=== PATIENT | male | born 1950 | race Caucasian/White ===

== ENCOUNTER → 2017-07-07 | Outpatient (CLI) | payer OTHER ==
[~2017-07-07] MED LIST: BECL0.3A INH; CHOL1000 PO; FLM4 PO; PRVHFAIN INH
--- NOTE | 2017-07-07 13:50 | DIAGNOSTIC IMAGING REPORT ---
SOFT TISS HEAD/NECK-THYROID HISTORY: Adenopathy LYMPHADENOPATHY, 1.7 CM LT NECK MASS COMPARISON: Ultrasound 2018 G FINDINGS: A preprocedural survey ultrasound of the left cervical neck was performed. This shows the 1.7 x 1.0 cm node in the prior study diminished to a size measurement of 1.0 x 0.5 cm. This Is approximately a 50-60% improvement in volume. Remains generally benign overall morphology with a fatty hilum. Given this improvement, as well as the benign morphology, biopsy was deferred as it is an improving situation. IMPRESSION: 1. Considerable interval decrease in size of the subcutaneous nodule previous described in the left posterior neck. 2. Interval maximum dimensions are 1.0 x 0.5 cm, with benign morphology characteristics. 3. Given this improvement, biopsy was deferred. 4. If this resolves completely no additional studies would be necessary. If the patient has recurrent symptoms, a repeat ultrasound with potential biopsy to follow-would be recommended. The above report was generated using voice recognition software. It may contain grammatical, syntax or spelling errors. Electronically signed by: Syed Clark M.D. 07/07/2017 1:49 PM Dictated Date/Time: 07/07/2017 1:45 PM
== END | disposition home or self-care (01) ==
LOC: C.ULTR 12:48
PROVIDERS: ATTEND Physician Assistant
DX: R59.1 Generalized enlarged lymph nodes (principal)

== ENCOUNTER 2021-01-19 12:16 | Inpatient (IN) ==
--- NOTE | 2021-01-19 13:34 | Emergency Department Note ---
History of Present Illness General Chief complaint: Shortness of Breath/Dyspnea Stated complaint: COVID +,SOB Time Seen by Provider: 01/19/21 12:39 Source: patient Mode of arrival: ambulatory Limitations: no limitations History of Present Illness Provider complaint: Shortness of breath, hypoxia, Covid positive Onset (ago): day(s) 3 Maximum Pain Intensity: 0 Relieved By: + none Exacerbated By: + movement Associated symptoms: + cough, + fever/chills, + loss of appetite, + malaise and + shortness of breath; no chest pain, no headaches or no nausea/vomiting Treatments prior to arrival: other This is a 70-year-old male presents the emergency department due to concern for increased shortness of breath and hypoxia noted at home. Patient states he first began having symptoms of coronavirus 9 days ago. He was tested and found to be positive. He states initially his symptoms were mild with rhinorrhea, fatigue, myalgias, nasal congestion, mild sore throat. He states as these progressed he eventually ended up coming to the emergency department due to concern for his worsening shortness of breath. He states he has been spot checking his oxygen level at home with a pulse oximeter. He states he was seen and evaluated here on Thursday, his oxygen level was fine at that time, and he was given monoclonal antibodies. He states he was also discharged on steroids which she has been taking per prescription. Patient states he is continue to spot check his pulse ox and it has dropped as low as 81% at home. He states over the last 48 to 72 hours he has felt increasingly short of breath. Patient states he does have a productive cough with mostly clear sputum. He denies any hemoptysis. He denies leg swelling, rash, vomiting or diarrhea. He states he has not had a normal appetite and still feels fatigued but is most concerned about the shortness of breath or cough. He states his is also ill and was also coronavirus positive. He states he does have a history of exercise-induced asthma. Denies any history of tobacco abuse. Pt seen during a time of high acuity and national emergency pandemic while wearing PPE. 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) Surgical History (Updated 01/19/21 @ 16:06 by Amaury Wen MD) Knee joint replacement status Social History Smoking Status: Never smoker Second Hand Exposure: No; Do You Dip or Chew Tobacco: No; Tobacco Cessation Education Requested by Patient: No Hx Alcohol Use: Yes Alcohol type: wine Hx Substance Use: No Preferred Language: Frisian Communication Ability: Effective [employer] Supervisor Required: No Beliefs That Will Affect Care: None Current Living Situation: Spouse Other Information That Helps Us Care for You: No Feels Safe at Home: Yes Safety Concerns: Feels Safe At This Time Assistive Devices: Oxygen - Continuous Review of Systems A total of 10 systems reviewed and were otherwise negative All systems reviewed & are unremarkable except as noted in HPI & below Physical Exam Vital Signs Vital Signs - 24 hr 01/19/21 12:22 01/19/21 12:47 01/19/21 13:47 Temperature 36.8 C Temperature Source Temporal Artery Scan Pulse Rate 75 60 Pulse Rate from SpO2 Sensor 59 L Respiratory Rate 18 20 Blood Pressure 103/63 Blood Pressure Mean 76 Pulse Oximetry 86 L 95 Oxygen Delivery Method Room Air Nasal Cannula Oxygen Flow Rate 5 Sepsis Recent Fever Within 48 Hours No Sepsis New/Unexplained Change in Mental Status No Sepsis Action Taken by Nursing No Action Required 01/19/21 13:55 01/19/21 15:30 01/19/21 16:07 Temperature 36.8 C Temperature Source Oral Pulse Rate 86 Pulse Rate from SpO2 Sensor 86 Respiratory Rate 23 Blood Pressure 136/81 Blood Pressure Mean 99 Pulse Oximetry 100 Oxygen Delivery Method Nasal Cannula Oxygen Flow Rate 5 Sepsis Recent Fever Within 48 Hours Sepsis New/Unexplained Change in Mental Status Sepsis Action Taken by Nursing 01/19/21 16:38 Temperature 36.8 C Temperature Source Oral Pulse Rate 84 Pulse Rate from SpO2 Sensor Respiratory Rate 18 Blood Pressure 134/86 Blood Pressure Mean Pulse Oximetry 100 Oxygen Delivery Method Nasal Cannula Oxygen Flow Rate 5 Sepsis Recent Fever Within 48 Hours Sepsis New/Unexplained Change in Mental Status Sepsis Action Taken by Nursing GENERAL: alert, ill appearing, well nourished, no distress, non-toxic EYE EXAM: normal conjunctiva, PERRL and EOM's grossly intact OROPHARYNX: no exudate, no erythema, lips, buccal mucosa, and tongue normal and mucous membranes are moist NECK: supple, no nuchal rigidity, no adenopathy, non-tender LUNGS: Clear to auscultation. Normal chest wall mechanics, no wheezes, scattered rhonchi and rales HEART: no murmurs, S1 normal and S2 normal ABDOMEN: abdomen soft, non-tender, normo-active bowel sounds, no masses, no rebound or guarding. BACK: Back is symmetrical on inspection and there is no deformity, no midline tenderness, no CVA tenderness. SKIN: no rashes and no bruising UPPER EXTREMITIES: upper extremities are grossly normal. FROM, nml pulses b/l. LOWER EXTREMITIES: No pitting edema. FROM, nml pulses b/l. NEURO EXAM: Normal sensorium, cranial nerves II-XII grossly intact, normal speech, no gross weakness of arms, no gross weakness of legs. Gross sensation intact. Course Administered Medications Enoxaparin Sodium (Enoxaparin Inj 40 Mg/0.4 Ml Syr) 40 mg SQ Q12H CARLYLE Stop: 02/18/21 20:59 Last Admin: 01/20/21 08:12 Dose: 40 mg Documented by: [id number] Admin: 01/19/21 21:11 Dose: 40 mg Documented by: [id number] Fluticasone Furoate (Fluticasone Furoate 200mcg 14 Puffs/Inhaler) 1 puffs INH DAILY CARLYLE Stop: 02/19/21 08:59 Last Admin: 01/20/21 08:13 Dose: 1 puffs Documented by: [id number] Dexamethasone 6 mg/ Syringe 1.5 mls @ 1 mls/min IV DAILY CARLYLE Stop: 01/30/21 08:59 Last Admin: 01/20/21 08:12 Dose: 1 mls/min Documented by: [id number] Tamsulosin HCl (Tamsulosin Hcl 0.4 Mg Cap) 0.4 mg PO DAILY CARLYLE Stop: 02/19/21 08:59 Last Admin: 01/20/21 08:13 Dose: 0.4 mg Documented by: [id number] Discontinued Medications Furosemide (Furosemide Inj 20 Mg/2 Ml Vial) 20 mg IV ONE ONE Stop: 01/20/21 07:20 Last Admin: 01/20/21 08:12 Dose: 20 mg Documented by: [id number] Sodium Chloride (Nss 1000ml) 1,000 mls @ 125 mls/hr IV .Q8H CARLYLE Stop: 02/18/21 13:44 Last Infusion: 01/19/21 17:29 Dose: 0 mls/hr Documented by: [id number] Admin: 01/19/21 14:13 Dose: 125 mls/hr Documented by: [id number] Medical Decision Making Differential Diagnosis Differential diagnoses includes but is not limited to pneumonia, bronchitis, COPD/Asthma exacerbation, pneumothorax, pulmonary embolism, congestive heart failure, acute coronary syndrome Medical Records Attestation: I reviewed the patient's medical records. Home Medications Current Medication List: was personally reviewed by me Laboratory Data Attestation: I reviewed the patient's lab results. Result diagrams: 01/19/21 13:48 01/20/21 08:22 Lab Results 01/19/21 01/19/21 01/19/21 Range/Units 13:48 13:48 13:48 WBC 16.74 H (4.8-10.8) K/uL RBC 4.79 (4.7-6.1) M/uL Hgb 14.2 (14.0-18.0) g/dL Hct 41.2 L (42-52) % MCV 86.0 (80-100) fL MCH 29.6 (25-34) pg MCHC 34.5 (32-36) g/dL RDW Std Deviation 43.2 (36.4-46.3) fL RDW Coeff of Kathia 13.8 (11.5-14.5) % Plt Count 322 (130-400) K/uL MPV 10.0 (7.4-10.4) fL Immature Gran % (Auto) 1.3 % Neut % (Auto) 85.0 % Lymph % (Auto) 6.8 % [place] % (Auto) 6.8 % Eos % (Auto) 0.0 % Baso % (Auto) 0.1 % Neut # (Auto) 14.24 H (1.4-6.5) K/uL Lymph # (Auto) 1.13 L (1.2-3.4) K/uL [place] # (Auto) 1.13 H (0.11-0.59) K/uL Eos # (Auto) 0.00 (0-0.5) K/uL Baso # (Auto) 0.02 (0-0.2) K/uL Immature Gran # (Auto) 0.22 H (0.00-0.02) K/uL Sodium 139 (136-145) mmol/L Potassium 3.9 (3.5-5.1) mmol/L Chloride 108 H (98-107) mmol/L Carbon Dioxide 26 (21-32) mmol/L Anion Gap 5.0 (3-11) BUN 17 (7-18) mg/dl Creatinine 0.76 (0.6-1.4) mg/dl Est Cr Clr Drug Dosing 93.4 ml/min Est GFR ( Amer) 107.1 ml/min Est GFR (Non-Af Amer) 92.4 ml/min BUN/Creatinine Ratio 22.9 H (10-20) Glucose 109 H (70-99) mg/dl Calcium 8.3 L (8.5-10.1) mg/dl Magnesium 2.4 (1.8-2.4) mg/dl Total Bilirubin 0.6 (0.2-1) mg/dl AST 34 (15-37) U/L ALT 35 (12-78) U/L Alkaline Phosphatase 61 (45-117) U/L Troponin I < 0.015 (0-0.045) ng/ml NT-Pro-B Natriuret Pep 2252 H (0-900) pg/ml Total Protein 6.3 L (6.4-8.2) gm/dl Albumin 2.6 L (3.4-5.0) gm/dl Globulin 3.7 (2.5-4.0) gm/dl Albumin/Globulin Ratio 0.7 L (0.9-2) COVID-19 Eval Order Covid19 at [facility] SARS-CoV-2 (PCR) (Negative) 01/19/21 Range/Units 13:48 WBC (4.8-10.8) K/uL RBC (4.7-6.1) M/uL Hgb (14.0-18.0) g/dL Hct (42-52) % MCV (80-100) fL MCH (25-34) pg MCHC (32-36) g/dL RDW Std Deviation (36.4-46.3) fL RDW Coeff of Kathia (11.5-14.5) % Plt Count (130-400) K/uL MPV (7.4-10.4) fL Immature Gran % (Auto) % Neut % (Auto) % Lymph % (Auto) % [place] % (Auto) % Eos % (Auto) % Baso % (Auto) % Neut # (Auto) (1.4-6.5) K/uL Lymph # (Auto) (1.2-3.4) K/uL [place] # (Auto) (0.11-0.59) K/uL Eos # (Auto) (0-0.5) K/uL Baso # (Auto) (0-0.2) K/uL Immature Gran # (Auto) (0.00-0.02) K/uL Sodium (136-145) mmol/L Potassium (3.5-5.1) mmol/L Chloride (98-107) mmol/L Carbon Dioxide (21-32) mmol/L Anion Gap (3-11) BUN (7-18) mg/dl Creatinine (0.6-1.4) mg/dl Est Cr Clr Drug Dosing ml/min Est GFR ( Amer) ml/min Est GFR (Non-Af Amer) ml/min BUN/Creatinine Ratio (10-20) Glucose (70-99) mg/dl Calcium (8.5-10.1) mg/dl Magnesium (1.8-2.4) mg/dl Total Bilirubin (0.2-1) mg/dl AST (15-37) U/L ALT (12-78) U/L Alkaline Phosphatase (45-117) U/L Troponin I (0-0.045) ng/ml NT-Pro-B Natriuret Pep (0-900) pg/ml Total Protein (6.4-8.2) gm/dl Albumin (3.4-5.0) gm/dl Globulin (2.5-4.0) gm/dl Albumin/Globulin Ratio (0.9-2) COVID-19 Eval Order SARS-CoV-2 (PCR) POSITIVE A* (Negative) Imaging Data Radiologist's Impression: Chest X-Ray 01/19/21 13:31 XR chest 1V portable HISTORY: Shortness of breath. Hypoxia. COMPARISON: Chest 01/16/2021. FINDINGS: No pneumothorax. No pleural effusions. The cardiac silhouette remains top normal in size. Patchy multifocal airspace opacities seen throughout the lungs have site progressed. This likely represents a viral pneumonia. IMPRESSION: Slight progression of the multifocal airspace opacities likely representing a viral pneumonia. ACT 112: Negative or not required by law. Electronically signed by: Da Beard M.D. 01/19/2021 2:52 PM ECG Data Attestation: I personally reviewed and interpreted this ECG as follows: Indication: + SOB/dyspnea Rate (beats per minute): 48 Rhythm: + sinus bradycardia ECG Intervals/blocks: + Normal QRS and + Normal QT ECG [place]: + Normal ECG ST segments: + Normal ST segments MDM Narrative This is a 70-year-old male presents the emergency department with concern for increased shortness of breath in the setting of known coronavirus. Patient was in the 80s here on room air and felt markedly improved with additional supplemental oxygen. Labs drawn and sent which were reassuring, chest x-ray consistent with coronavirus infection. Patient started on dexamethasone previously. Discussed all results with patient at bedside and need for additional inpatient evaluation. He verbalized understanding was in agreement with plan. Case discussed with hospitalist. An order was placed for continuous cardiac monitoring. The monitor shows a rate of __59_ with _sinus bradycardia__ rhythm. Impression & Plan Dyspnea, Hypoxia, COVID-19 Discharge Plan Visit Data Chief Complaint: Shortness of Breath/Dyspnea Stated Complaint: COVID +,SOB ED Provider: Yolie Montoya Discharge Problem: Dyspnea, Hypoxia, COVID-19 Patient Disposition: Admitted As Inpatient Condition: Fair Discharge Instructions Interventions: ED Discharge Assessment Last Done: 01/19/21 16:38 Discharge Problem: Dyspnea Qualifiers: Dyspnea type: shortness of breath Qualified Code(s): R06.02 - Shortness of breath
[2021-01-19] MEDS ORDERED: SODIUM CHLORIDE 0.9% 1000ML 1,000 ML IV SCH (13:45)
[2021-01-19 14:13] LABS: Basophils # (auto) 0.02 K/uL (0-0.2); Basophils % (auto) 0.1 %; Hematocrit (blood only) 41.2 % (42-52); Hemoglobin 14.2 g/dL (14.0-18.0); Immature Granulocytes # (auto) 0.22 K/uL (0.00-0.02); Immature Granulocytes % (auto) 1.3 %; Lymphocytes # (auto) 1.13 K/uL (1.2-3.4); Lymphocytes % (auto) 6.8 %; Mean Corpuscular Hemoglobin 29.6 pg (25-34); Mean Corpuscular Hgb Conc 34.5 g/dL (32-36); Monocytes # (auto) 1.13 K/uL (0.11-0.59); Monocytes % (auto) 6.8 %; Neutrophils # (auto) 14.24 K/uL (1.4-6.5); Platelet Count 322 K/uL (130-400); RDW Coefficient of Variation 13.8 % (11.5-14.5); RDW Standard Deviation 43.2 fL (36.4-46.3); Red Blood Count 4.79 M/uL (4.7-6.1); White Blood Count 16.74 K/uL (4.8-10.8)
[2021-01-19 14:31] LABS: Alanine Aminotransferase 35 U/L (12-78); Albumin Level 2.6 gm/dl (3.4-5.0); Aspartate Aminotransferase 34 U/L (15-37); BUN Creatinine Ratio 22.9 (10-20); Blood Urea Nitrogen 17 mg/dl (7-18); Calcium 8.3 mg/dl (8.5-10.1); Carbon Dioxide 26 mmol/L (21-32); Chloride 108 mmol/L (98-107); Creatinine Clr Calc Pharmacy 93.4 ml/min; Est GFR (African American) 107.1 ml/min; Est GFR (Non-African American) 92.4 ml/min; Glucose 109 mg/dl (70-99); Magnesium 2.4 mg/dl (1.8-2.4); Potassium 3.9 mmol/L (3.5-5.1); Sodium 139 mmol/L (136-145)
[2021-01-19 14:36] LABS: Albumin Globulin Ratio 0.7 (0.9-2); Alkaline Phosphatase 61 U/L (45-117); Bilirubin,Total 0.6 mg/dl (0.2-1); Globulin 3.7 gm/dl (2.5-4.0); NT Pro B Type Natriuretic Pept 2252 pg/ml (0-900); Total Protein 6.3 gm/dl (6.4-8.2); Troponin I < 0.015 ng/ml (0-0.045)
--- NOTE | 2021-01-19 14:53 | XRay Report ---
XR chest 1V portable HISTORY: Shortness of breath. Hypoxia. COMPARISON: Chest 01/16/2021. FINDINGS: No pneumothorax. No pleural effusions. The cardiac silhouette remains top normal in size. P atchy multifocal airspace opacities seen throughout the lungs have site progressed. This likely repre sents a viral pneumonia. IMPRESSION: Slight progression of the multifocal airspace opacities likely representing a viral pneumonia. ACT 112: Negative or not required by law. Electronically signed by: Da Beard M.D. 01/19/2021 2:52 PM
--- NOTE | 2021-01-19 15:53 | History & Physical Report ---
Date of Service January 19, 2021 Assessment & Plan (1) Pneumonia due to 2019 novel coronavirus: Plan: Celestino is a 70-year-old male with a past medical history of asthma who presents on day approximately 1012 of Covid with worsening hypoxia. Acute hypoxic respiratory failure 2/2 COVID-19 pneumonia Patient in low 80s on arrival to ER, sat approximately 90% on 5 L nasal cannula Received Monocal antibodies last week CXR:Slight progression of the multifocal airspace opacities likely representing a viral pneumonia. Leukocytosis to 16.74, patient on steroids? Steroid effect. No signs of superimposed bacterial pneumonia proBNP 2252, patient denies history of cardiac disease Troponin negative Covid positive EKG sinus bradycardia on admission, regular rate at time of bedside assessment Continue dexamethasone 6 mg IV daily Titrate oxygen to SPO2 greater than 90% Continue Pulmicort 2 puffs twice daily/formulary equivalent DuoNebs as needed Incentive spirometry Defer additional fluids. Patient appears hydrated and prefer dry status.? El evated BNP as patient denies cardiac history, echo pending Does not meet criteria for tocilizumab at this time, remdesivir not indicated due to duration of illness DVT prophylaxis: Lovenox DVT prophylaxis Diet: Regular Disposition: Medical surgical with telemetry CODE STATUS: Full code. Discussed with patient. Reports he has a living well with his , was to be full code at this time. (2) Asthma: Plan: As above (3) BPH (benign prostatic hyperplasia): Plan: Continue tamsulosin. No history of prostate cancer, no family history of prostate cancer History of Present Illness Chief Complaint: Shortness of breath, low O2 Primary Care Provider: Kinza Miramontes DO Celestino reports symptoms and fatigue started ~10 days ago. Tested positive for COVID Wed (resulted Thursday). [place] 'iffy' some achiness and congestion of the weekend. He has a home pulseox which was dropping, an dhe was concerned so came in the ER 4 days ago. He presented with his whose lungs looked OK, but Celestino reported his XR showed more PNA and was given a monoclonal infusion here by Dr. Eller. Recieved that evening and started decadron 6mg daily. This morning he noticed his oxygen was down to 81% and he was very short of short. No chest pain or pressure Still peeing normally No nausea, vomiting, diarrhea, or constipation Hungry Had J&J vaccination Medical History: Reviewed. 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 BPH on tamsulosin. No hx prostate cancer. Medications: Reviewed Surgical History: Reviewed FHX: Noncontributory Allergies: Reviewed. NKDA Social History: No tobacco product use. Rare alcohol. No recreational drug use. Code Status:Full Code. 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 NAD. Cooperative. HEENT: Atraumatic, normocephalic. Visual acuity grossly intact. Hearing grossly intact. Pupils equal and reactive to light. Pulm: Scattered bibasilar crackles, diffuse end expiratory wheezes. Symmetrical chest rise. No increase work of breathing. No respiratory distress. Cardiac: RRR, -mrg. Radial pulses intact and symmetrical. Abdominal: Nontender, nondistended, soft. BS present. Extremities: Skin warm and dry, plant operations coordinator strength, ankle plantar flexion/dorsiflexion 5/5 and symmetrical. Radial pulses and PT pulse intact. Results & Data Results & Data ([facility]) Vital Signs (Past 12 Hours) Vital Signs Temp Pulse Resp BP Pulse Ox 01/19/21 12:22 36.8 C 75 18 103/63 86 L PG Care Time/CCT Total # of Minutes Spent Total Time Spent with Patient: Total time spent is greater than 50% in coordination of care (as documented) at patient's floor/unit and/or counseling patient: Coding Level of Care Code 31994 Initial Inpt Care Lvl 3 Diagnoses Pneumonia due to 2019 novel coronavirus U07.1; J12.82 Asthma J45.909 BPH (benign prostatic hyperplasia) N40.0
[2021-01-19] MEDS ORDERED: ALBUT/IPRATROP 3MG/0.5MG NEB 3 ML VIAL NEB PRN (17:28)
[2021-01-19] MEDS ORDERED: [UNRECOGNIZED DRUG - OTHER] INH SCH (17:28)
[2021-01-19] MEDS ORDERED: BUDESONIDE INH SCH (17:28)
[2021-01-19] MEDS: ENOXAPARIN INJ 40 MG/0.4 ML SYR SQ SCH (21:11)
[2021-01-20] MEDS ORDERED: FUROSEMIDE INJ 20 MG/2 ML VIAL IV ONE (07:19)
--- NOTE | 2021-01-20 07:50 | Electrocardiogram Report ---
Test Reason : Blood Pressure : / mmHG Vent. Rate : 048 BPM Atrial Rate : 048 BPM P-R Int : 142 ms QRS Dur : 080 ms QT Int : 430 ms P-R-T Axes : 050 043 044 degrees QTc Int : 384 ms Sinus bradycardia Abnormal ECG When compared with ECG of 16-JAN-2021 20:58, No significant change was found Confirmed by Anirudh Rodriguez ([id number]) on 01/20/2021 7:49:45 AM Referred By: REFERRED SELF Confirmed By:Dar Rodriguez
[2021-01-20] MEDS: ENOXAPARIN INJ 40 MG/0.4 ML SYR SQ SCH ×2 (08:12→20:50)
[2021-01-20] MEDS: dexAMETHasone 6 MG in SYRINGE 0 ML IV SCH (08:12)
[2021-01-20] MEDS: TAMSULOSIN HCL 0.4 MG CAP PO SCH (08:13)
[2021-01-20] MEDS: FLUTICASONE FUROATE 200MCG 14 PUFFS/INHALER INH SCH (08:13)
[2021-01-20 09:07] LABS: BUN Creatinine Ratio 21.8 (10-20); C Reactive Protein 3.3 mg/dl (0-0.29); Creatinine Clr Calc Pharmacy 92.2 ml/min; Est GFR (African American) 106.6 ml/min; Est GFR (Non-African American) 91.9 ml/min; Potassium 3.8 mmol/L (3.5-5.1)
--- NOTE | 2021-01-20 13:14 | Hospitalist Progress Note ---
Date of Service January 20, 2021 Assessment & Plan (1) Pneumonia due to 2019 novel coronavirus: Plan: Celestino is a 70-year-old male with a past medical history of asthma who presents on day approximately 1012 of Covid with worsening hypoxia. got monoclonal antibodies on 01/16 in the ED, was on room air at that time dexamethasone 6mg IV daily, day 2 good response to lasix today, will give Lasix 20mg IV qAM with potassium, goal of negative fluid balance encouraged prone position incentive spirometer and flutter valve, mobilizing sputum no role for Remdesivir or baricitinib at this time eating and drinking well check BMP and CRP tomorrow he is stable on 5L this afternoon, improved from this morning discussed that he will likely be here a few days to a week (2) Acute respiratory failure with hypoxia: Plan: down to 5L today, wean as tolerated dexamethasone and lasix, prone positioning try to get down to room air and discharge (3) Asthma: Plan: As above (4) BPH (benign prostatic hyperplasia): Plan: Continue tamsulosin. No history of prostate cancer, no family history of prostate cancer Admission and Anticipated Discharge Date Admission Date: January 19, 2021 Subjective patient feeling better today, down to 5L from 7L this morning, breathing a little better has an intermittent cough, brings up sputum, had RT give him a flutter valve he responded well to Lasix 20mg IV this morning, will scheduled qAM eating and drinking well confirmed he has been sick for about 10-11 days, got monoclonal antibodies on 01/16 Review of Systems Review of Systems: All systems reviewed & are unremarkable except as noted in Subjective Constitutional: + fatigue and + weakness; no fever Respiratory: + cough, + dyspnea, + dyspnea on exertion and + sputum production Gastrointestinal: no abdominal pain, no nausea, no vomiting, no constipation and no diarrhea/loose stools Physical Exam Physical Exam: General: well developed, well nourished, no acute distress, comfortable Neck: supple, trachea midline, normal thyroid Lungs: crackles in bases, no wheezing, + tachypnea, no accessory muscle use, no distress, + cough Heart: regular S1 and S2, no murmur, peripheral pulses normal, capillary refill normal, no edema Abdomen: soft, NT, ND, + BS, no hepatomegaly, normal to percussion Extremities: normal in appearance, no cyanosis, no petechiae, strength is 5/5 bilaterally Neuro: awake, cooperative, moves all extremities, no focal motor deficits, CN II-XII intact, sensation in extremities intact, normal speech Skin: warm, dry, no rash, normal turgor Psych: Awake, alert oriented x 3, euthymic affect Results & Data Results & Data ([facility]) Vital Signs (Past 12 Hours) Vital Signs Temp Pulse Resp BP BP Pulse Ox 01/20/21 11:47 36.7 C 52 L 20 124/71 98 01/20/21 07:24 36.4 C L 76 20 138/76 98 01/20/21 03:28 36.5 C 64 20 111/66 96 Laboratory Results Laboratory Results - last 24 hr 01/19/21 01/19/21 01/19/21 13:48 13:48 13:48 WBC 16.74 H RBC 4.79 Hgb 14.2 Hct 41.2 L MCV 86.0 MCH 29.6 MCHC 34.5 RDW Std Deviation 43.2 RDW Coeff of Kathia 13.8 Plt Count 322 MPV 10.0 Immature Gran % (Auto) 1.3 Neut % (Auto) 85.0 Lymph % (Auto) 6.8 [place] % (Auto) 6.8 Eos % (Auto) 0.0 Baso % (Auto) 0.1 Neut # (Auto) 14.24 H Lymph # (Auto) 1.13 L [place] # (Auto) 1.13 H Eos # (Auto) 0.00 Baso # (Auto) 0.02 Immature Gran # (Auto) 0.22 H Sodium 139 Potassium 3.9 Chloride 108 H Carbon Dioxide 26 Anion Gap 5.0 BUN 17 Creatinine 0.76 Est Cr Clr Drug Dosing 93.4 Est GFR ( Amer) 107.1 Est GFR (Non-Af Amer) 92.4 BUN/Creatinine Ratio 22.9 H Glucose 109 H Calcium 8.3 L Magnesium 2.4 Total Bilirubin 0.6 AST 34 ALT 35 Alkaline Phosphatase 61 Troponin I < 0.015 C-Reactive Protein NT-Pro-B Natriuret Pep 2252 H Total Protein 6.3 L Albumin 2.6 L Globulin 3.7 Albumin/Globulin Ratio 0.7 L COVID-19 Eval Order Covid19 at [facility] SARS-CoV-2 (PCR) 01/19/21 01/20/21 13:48 08:22 WBC RBC Hgb Hct MCV MCH MCHC RDW Std Deviation RDW Coeff of Kathia Plt Count MPV Immature Gran % (Auto) Neut % (Auto) Lymph % (Auto) [place] % (Auto) Eos % (Auto) Baso % (Auto) Neut # (Auto) Lymph # (Auto) [place] # (Auto) Eos # (Auto) Baso # (Auto) Immature Gran # (Auto) Sodium 143 Potassium 3.8 Chloride 111 H Carbon Dioxide 26 Anion Gap 5.0 BUN 17 Creatinine 0.77 Est Cr Clr Drug Dosing 92.2 Est GFR ( Amer) 106.6 Est GFR (Non-Af Amer) 91.9 BUN/Creatinine Ratio 21.8 H Glucose 82 Calcium 8.0 L Magnesium Total Bilirubin AST ALT Alkaline Phosphatase Troponin I C-Reactive Protein 3.30 H NT-Pro-B Natriuret Pep Total Protein Albumin Globulin Albumin/Globulin Ratio COVID-19 Eval Order SARS-CoV-2 (PCR) POSITIVE A* Medications Administered Current Inpatient Medications Acetaminophen (Acetaminophen 325 Mg Tab) 650 mg PO Q4H PRN PRN Reason: Pain or Fever Stop: 02/18/21 17:27 Albuterol (Albut/Ipratrop 3mg/0.5mg Neb 3 Ml Vial) 3 ml NEB QIDR PRN PRN Reason: Wheezing Stop: 02/18/21 17:27 Enoxaparin Sodium (Enoxaparin Inj 40 Mg/0.4 Ml Syr) 40 mg SQ Q12H CARLYLE Stop: 02/18/21 20:59 Last Admin: 01/20/21 08:12 Dose: 40 mg Documented by: Fluticasone Furoate (Fluticasone Furoate 200mcg 14 Puffs/Inhaler) 1 puffs INH DAILY CARLYLE Stop: 02/19/21 08:59 Last Admin: 01/20/21 08:13 Dose: 1 puffs Documented by: Dexamethasone 6 mg/ Syringe 1.5 mls @ 1 mls/min IV DAILY CARLYLE Stop: 01/30/21 08:59 Last Admin: 01/20/21 08:12 Dose: 1 mls/min Documented by: Tamsulosin HCl (Tamsulosin Hcl 0.4 Mg Cap) 0.4 mg PO DAILY CARLYLE Stop: 02/19/21 08:59 Last Admin: 01/20/21 08:13 Dose: 0.4 mg Documented by: PG Care Time/CCT Total # of Minutes Spent Total Time Spent with Patient: Total time spent is greater than 50% in coordination of care (as documented) at patient's floor/unit and/or counseling patient: Coding Level of Care Code 01475 Subseq Hosp Care Lvl 2 Diagnoses Pneumonia due to 2019 novel coronavirus U07.1; J12.82 Asthma J45.909 BPH (benign prostatic hyperplasia) N40.0 Acute respiratory failure with hypoxia J96.01
[2021-01-21] MEDS: FLUTICASONE FUROATE 200MCG 14 PUFFS/INHALER INH SCH (08:29)
[2021-01-21] MEDS: dexAMETHasone 6 MG in SYRINGE 0 ML IV SCH (08:30)
[2021-01-21] MEDS: ENOXAPARIN INJ 40 MG/0.4 ML SYR SQ SCH ×2 (08:30→19:46)
[2021-01-21] MEDS: FUROSEMIDE INJ 20 MG/2 ML VIAL IV SCH (08:31)
[2021-01-21] MEDS: POTASSIUM CHLORIDE CRTAB 20 MEQ TABCR PO SCH (08:32)
[2021-01-21] MEDS: TAMSULOSIN HCL 0.4 MG CAP PO SCH (08:32)
[2021-01-21 08:39] LABS: BUN Creatinine Ratio 22.8 (10-20); C Reactive Protein 7.9 mg/dl (0-0.29); Calcium 8.3 mg/dl (8.5-10.1); Est GFR (African American) 110.2 ml/min; Est GFR (Non-African American) 95.1 ml/min; Potassium 3.9 mmol/L (3.5-5.1)
--- NOTE | 2021-01-21 09:26 | Hospitalist Progress Note ---
Date of Service January 21, 2021 Assessment & Plan (1) Pneumonia due to 2019 novel coronavirus: Plan: Celestino is a 70-year-old male with a past medical history of asthma who presents on day 1011 of Covid with worsening hypoxia. got monoclonal antibodies on 01/16 in the ED, was on room air at that time dexamethasone 6mg IV daily, Lasix 20mg IV qAM with potassium, goal of negative fluid balance encouraged prone position incentive spirometer and flutter valve, mobilizing sputum no role for Remdesivir or baricitinib at this time eating and drinking well CRP is 7.9 however patient clinically has been stable (2) Acute respiratory failure with hypoxia: Plan: 5 L nasal cannula,, wean as tolerated dexamethasone and lasix, prone positioning try to get down to room air and discharge (3) Asthma: Plan: As above (4) BPH (benign prostatic hyperplasia): Plan: Continue tamsulosin. No history of prostate cancer, no family history of prostate cancer Admission and Anticipated Discharge Date Admission Date: January 19, 2021 Subjective patient continues feeling better today, down to 5L nasal canulae has an intermittent cough, brings up sputum, using flutter valve hLasix 20mg IV scheduled qAM eating and drinking well confirmed he has been sick for about 10-11 days, got monoclonal antibodies on 01/16 Review of Systems Review of Systems: Mild distress and fatigue no headache, no visual changes no speech or swallowing issues getting his taste back no chest pain, pressure or palpitations Persist shortness of breath, occasionally productive cough no wheezes no abdominal pain, nausea or vomiting, diarrhea or constipation no dysuria, hematuria or frequency no focal joint pain or swelling no back pain, CVA tenderness or radicular pain no bruising, bleeding or rashes no focal signs of weakness or numbness or altered sensation no complaints of anxiety or depression.. Physical Exam Physical Exam: The patient appeared well nourished and normally developed. Vital signs as documented. Head exam is normocephalic atraumatic Neck is without JVD, thyromegaly, or carotid bruits. Lungs are bilateral rales in all lung mujica Cardiac exam, Rhythm is regular.. No murmurs, rubs or gallops. Abdominal exam reveals normal bowel sounds, soft non tender, no masses Extremities are nonedematous and both pedal pulses are present Neurologic exam is alert and oriented, no focal loss of strength or sensation Skin is without bruises or rashes Psychologically is without concerns for anxiety or depression Results & Data Results & Data ([facility]) Vital Signs (Past 12 Hours) Vital Signs Temp Pulse Resp BP Pulse Ox 01/21/21 07:13 97.3 F L 73 18 125/76 97 01/21/21 03:40 98.4 F 64 16 149/77 H 95 01/20/21 22:41 97.9 F 67 16 122/69 92 PG Care Time/CCT Total # of Minutes Spent Total Time Spent with Patient: Total time spent is greater than 50% in coordination of care (as documented) at patient's floor/unit and/or counseling patient: Coding Level of Care Code 67802 Subseq Hosp Care Lvl 2 Diagnoses Pneumonia due to 2019 novel coronavirus U07.1; J12.82 Acute respiratory failure with hypoxia J96.01 Asthma J45.909 BPH (benign prostatic hyperplasia) N40.0
[2021-01-22 07:51] LABS: Creatinine Clr Calc Pharmacy 107.5 ml/min; Est GFR (African American) 113.5 ml/min
[2021-01-22] MEDS: dexAMETHasone 6 MG in SYRINGE 0 ML IV SCH (08:00)
[2021-01-22] MEDS: FLUTICASONE FUROATE 200MCG 14 PUFFS/INHALER INH SCH (08:00)
[2021-01-22] MEDS: ENOXAPARIN INJ 40 MG/0.4 ML SYR SQ SCH ×2 (08:00→19:34)
[2021-01-22] MEDS: TAMSULOSIN HCL 0.4 MG CAP PO SCH (08:01)
[2021-01-22] MEDS: FUROSEMIDE INJ 20 MG/2 ML VIAL IV SCH (08:01)
[2021-01-22] MEDS: POTASSIUM CHLORIDE CRTAB 20 MEQ TABCR PO SCH (08:01)
[2021-01-22] MEDS: ACETAMINOPHEN 325 MG TAB PO PRN (14:29)
[2021-01-22] MEDS ORDERED: HYDROmorphone INJ 0.5 MG/0.5 ML SYR IV STA (15:05)
--- NOTE | 2021-01-22 17:45 | Hospitalist Progress Note ---
Date of Service January 22, 2021 Assessment & Plan (1) Headache: Plan: Pt will have Ct venogram of head as is non typical headache, look for sagital sinus thrombosis given prothrombotic state of covid, also look for acute CVA but no clinical neurologic signs at exam today, medicate for pain (2) Pneumonia due to 2019 novel coronavirus: Plan: Celestino is a 70-year-old male with a past medical history of asthma who presents on day 101 of Covid with worsening hypoxia. got monoclonal antibodies on 01/16 in the ED, was on room air at that time dexamethasone 6mg IV daily, Lasix 20mg IV qAM with potassium, goal of negative fluid balance encouraged prone position incentive spirometer and flutter valve, mobilizing sputum no role for Remdesivir or baricitinib due to time course and lack of disease severity CRP is 7.9 however patient clinically has been stable with regard to his pulmonary status (3) Acute respiratory failure with hypoxia: Plan: 5 L nasal cannula,, unable to wean dexamethasone and lasix, prone positioning try to get down to room air and discharge (4) Asthma: Plan: stable (5) BPH (benign prostatic hyperplasia): Plan: Continue tamsulosin. No history of prostate cancer, no family history of prostate cancer Admission and Anticipated Discharge Date Admission Date: January 19, 2021 Subjective pt has a significant headache, bilateral, no visual changes, still some lightheadedness, still on 5L nasal canulae has an intermittent cough, Lasix 20mg IV continues qAM headache has prevented him from eating and drinking well todayu confirmed he has been sick for about 10-11 days prior to admission , got monoclonal antibodies on 01/16 Review of Systems Review of Systems: Mild distress and fatigue bifrontal headache, no visual changes, lightheaded no speech or swallowing issues getting his taste back no chest pain, pressure or palpitations Persistant shortness of breath, occasionally productive cough no wheezes no abdominal pain, nausea or vomiting, diarrhea or constipation no dysuria, hematuria or frequency no focal joint pain or swelling no back pain, CVA tenderness or radicular pain no bruising, bleeding or rashes no focal signs of weakness or numbness or altered sensation no complaints of anxiety or depression.. Physical Exam Physical Exam: The patient appeared well nourished and normally developed. Vital signs as documented. Head exam is normocephalic atraumatic , perrl eomi Neck is without JVD, thyromegaly, or carotid bruits. Lungs continues with bilateral rales in all lung mujica Cardiac exam, Rhythm is regular.. No murmurs, rubs or gallops. Abdominal exam reveals normal bowel sounds, soft non tender, no masses Extremities are nonedematous and both pedal pulses are present Neurologic exam is alert and oriented, no focal loss of strength or sensation, cranial nerves intact Skin is without bruises or rashes Psychologically is without concerns for anxiety or depression Results & Data Results & Data ([facility]) Vital Signs (Past 12 Hours) Vital Signs Temp Pulse Resp BP Pulse Ox 01/22/21 12:54 97.9 F 77 22 105/61 95 01/22/21 07:40 97.9 F 51 L 19 156/71 H 98 PG Care Time/CCT Total # of Minutes Spent Total Time Spent with Patient: Total time spent is greater than 50% in coordination of care (as documented) at patient's floor/unit and/or counseling patient: Coding Level of Care Code 33550 Subseq Hosp Care Lvl 3 Diagnoses Pneumonia due to 2019 novel coronavirus U07.1; J12.82 Acute respiratory failure with hypoxia J96.01 Asthma J45.909 BPH (benign prostatic hyperplasia) N40.0 Headache R51.9
[2021-01-22] MEDS ORDERED: OPTIRAY 320 125ml IV ONE (20:44)
--- NOTE | 2021-01-22 20:55 | CT Scan Report ---
CT VENOGRAM OF THE BRAIN COMBO CLINICAL HISTORY: Headache. Lightheadedness. COMPARISON STUDY: No priors. TECHNIQUE: Unenhanced axial CT scan of the brain is performed. Subsequently, following the IV adminis tration of 110 cc of Optiray 320, CT venogram of the brain was performed from the skull base to the v ertex. Images are reviewed in the axial, sagittal, and coronal planes. 3-D MIPS images are created an d assessed. IV contrast was administered without complication. A dose lowering technique was utilize d adhering to the principles of ALARA. CT DOSE: 739.79 mGy.cm FINDINGS: Brain parenchyma: There is mild age-related involutional change noting minimal microangiopathic disea se. There is no hemorrhage, mass effect, or evidence of acute territorial ischemia by CT criteria. Th ere is no evidence of enhancing mass lesion on the angiogram phase images. No extra-axial fluid colle ction is seen. Hensno-white matter differentiation is preserved. Ventricles, sulci, and cisterns: Normal in configuration. CT venogram: There is no evidence of dural venous sinus thrombosis. The superior sagittal sinus is wi marcelo patent, as are the transverse sinuses and the sigmoid sinuses. The internal jugular veins are pa tent bilaterally. The inferior sagittal sinus is clear. Intracranial arteries: There is atherosclerotic calcification of the cavernous carotid arteries. The internal carotid arteries are widely patent, as are the anterior and middle cerebral arteries. The ve rtebrobasilar system and posterior cerebral arteries are widely patent. The vertebral arteries are co dominant. There is no evidence of aneurysm, high-grade stenosis, or focal vessel cutoff identified th roughout the intracranial circulation. Orbits: The bony orbits are intact. The orbital contents are normal as visualized. Sinuses and mastoids: The visualized paranasal sinuses are clear. The mastoid air cells are well pneu matized. Calvarium: Unremarkable. IMPRESSION: 1. There is no hemorrhage, mass effect, or evidence of acute territorial ischemia by CT criteria. 2. Normal CT venogram of the brain. ACT 112: Negative or not required by law. Electronically signed by: Jhon Baca M.D. 01/22/2021 8:53 PM
[2021-01-23] MEDS: ENOXAPARIN INJ 40 MG/0.4 ML SYR SQ SCH ×2 (08:03→20:49)
[2021-01-23] MEDS: POTASSIUM CHLORIDE CRTAB 20 MEQ TABCR PO SCH (08:06)
[2021-01-23] MEDS: TAMSULOSIN HCL 0.4 MG CAP PO SCH (08:06)
[2021-01-23] MEDS: dexAMETHasone 6 MG in SYRINGE 0 ML IV SCH (08:07)
[2021-01-23] MEDS: FUROSEMIDE INJ 20 MG/2 ML VIAL IV SCH (08:07)
[2021-01-23] MEDS: FLUTICASONE FUROATE 200MCG 14 PUFFS/INHALER INH SCH (08:08)
[2021-01-23] MEDS: ACETAMINOPHEN 325 MG TAB PO PRN (09:24)
[2021-01-23] MEDS: HYDROmorphone INJ 0.5 MG/0.5 ML SYR IV PRN (10:25)
[2021-01-23] MEDS ORDERED: KETOROLAC TROMETHAMINE 15 MG/ML VIAL IV PRN (18:28)
[2021-01-23] MEDS ORDERED: SODIUM CHLORIDE 0.65% NA SOLN 45 ML (OCEAN) PRN (18:29)
[2021-01-23] MEDS ORDERED: ACETAMINOPHEN 500 MG TAB PO PRN (18:29)
--- NOTE | 2021-01-23 18:33 | Hospitalist Progress Note ---
Date of Service January 23, 2021 Assessment & Plan (1) Headache: Plan: Ct venogram of head negative for thrombosis or stroke and additional sinus look clear too, medicate for pain (2) Pneumonia due to 2019 novel coronavirus: Plan: Celestino is a 70-year-old male with a past medical history of asthma who presents on day 101 of Covid with worsening hypoxia. got monoclonal antibodies on 01/16 in the ED, was on room air at that time dexamethasone 6mg IV daily, Lasix 20mg IV qAM with potassium, goal of negative fluid balance encouraged prone position incentive spirometer and flutter valve, mobilizing sputum no role for Remdesivir or baricitinib due to time course and lack of disease severity CRP is 7.9 however patient clinically has been stable with regard to his pulmonary status (3) Acute respiratory failure with hypoxia: Plan: 5 L nasal cannula,, unable to wean , very sluggish movement dexamethasone and lasix, prone positioning try to get down to room air and discharge (4) Asthma: Plan: stable (5) BPH (benign prostatic hyperplasia): Plan: Continue tamsulosin. No history of prostate cancer, no family history of prostate cancer Admission and Anticipated Discharge Date Admission Date: January 19, 2021 Subjective pt has recurrence of his significant headache, bilateral, still no visual changes, c/o some sinus fullness, still on 5L nasal canulae has an intermittent cough, Lasix 20mg IV continues qAM headache has prevented him from eating and drinking well confirmed he has been sick for about 10-11 days prior to admission , monoclonal antibodies on 01/16 Review of Systems Review of Systems: Mild distress and fatigue bifrontal headache, no visual changes, lightheaded some sinus congestion no speech or swallowing issues getting his taste back no chest pain, pressure or palpitations Persistent shortness of breath, occasionally productive cough no wheezes no abdominal pain, nausea or vomiting, diarrhea or constipation no dysuria, hematuria or frequency no focal joint pain or swelling no back pain, CVA tenderness or radicular pain no bruising, bleeding or rashes no focal signs of weakness or numbness or altered sensation no complaints of anxiety or depression.. Physical Exam Physical Exam: The patient appeared well nourished and normally developed. Vital signs as documented. Head exam is normocephalic atraumatic , perrl eomi, some nasal congestion Neck is without JVD, thyromegaly, or carotid bruits. Lungs continues with bilateral rales in all lung mujica Cardiac exam, Rhythm is regular.. No murmurs, rubs or gallops. Abdominal exam reveals normal bowel sounds, soft non tender, no masses Extremities are nonedematous and both pedal pulses are present Neurologic exam is alert and oriented, no focal loss of strength or sensation, cranial nerves intact Skin is without bruises or rashes Psychologically is without concerns for anxiety or depression Results & Data Results & Data ([facility]) Vital Signs (Past 12 Hours) Vital Signs Temp Pulse Pulse Resp BP Pulse Ox Pulse Ox 01/23/21 15:30 97.3 F L 59 L 19 122/74 95 01/23/21 11:17 98.1 F 58 L 20 115/68 96 01/23/21 10:34 55 L 98 01/23/21 08:31 97.7 F 52 L 19 126/71 92 PG Care Time/CCT Total # of Minutes Spent Total Time Spent with Patient: Total time spent is greater than 50% in coordination of care (as documented) at patient's floor/unit and/or counseling patient: Coding Level of Care Code 90064 Subseq Hosp Care Lvl 2 Diagnoses Headache R51.9 Pneumonia due to 2019 novel coronavirus U07.1; J12.82 Acute respiratory failure with hypoxia J96.01 Asthma J45.909 BPH (benign prostatic hyperplasia) N40.0
[2021-01-23] MEDS ORDERED: CETIRIZINE HCL 10 MG TABLET PO ONE (19:00)
[2021-01-24 07:26] LABS: Hematocrit (blood only) 39.4 % (42-52); Hemoglobin 13.6 g/dL (14.0-18.0); Mean Corpuscular Hemoglobin 29.3 pg (25-34); Mean Corpuscular Hgb Conc 34.5 g/dL (32-36); Mean Corpuscular Volume 84.9 fL (80-100); Mean Platelet Volume 9.8 fL (7.4-10.4); Platelet Count 399 K/uL (130-400); RDW Coefficient of Variation 13.6 % (11.5-14.5); RDW Standard Deviation 42.2 fL (36.4-46.3); Red Blood Count 4.64 M/uL (4.7-6.1); White Blood Count 10.53 K/uL (4.8-10.8)
[2021-01-24 07:58] LABS: BUN Creatinine Ratio 16.8 (10-20); Calcium 8.1 mg/dl (8.5-10.1); Creatinine Clr Calc Pharmacy 102.7 ml/min; Est GFR (African American) 112.1 ml/min; Est GFR (Non-African American) 96.8 ml/min; Magnesium 2.3 mg/dl (1.8-2.4); Potassium 3.7 mmol/L (3.5-5.1)
[2021-01-24] MEDS: FLUTICASONE FUROATE 200MCG 14 PUFFS/INHALER INH SCH (09:59)
[2021-01-24] MEDS: dexAMETHasone 6 MG in SYRINGE 0 ML IV SCH (09:59)
[2021-01-24] MEDS: POTASSIUM CHLORIDE CRTAB 20 MEQ TABCR PO SCH (10:00)
[2021-01-24] MEDS: ENOXAPARIN INJ 40 MG/0.4 ML SYR SQ SCH ×2 (10:03→20:03)
[2021-01-24] MEDS: TAMSULOSIN HCL 0.4 MG CAP PO SCH (10:03)
[2021-01-24] MEDS: FUROSEMIDE INJ 20 MG/2 ML VIAL IV SCH (10:23)
--- NOTE | 2021-01-24 17:41 | Hospitalist Progress Note ---
Date of Service January 24, 2021 Assessment & Plan (1) Pneumonia due to 2019 novel coronavirus: Plan: Celestino is a 70-year-old male with a past medical history of asthma who presents on day 1011 of Covid with worsening hypoxia. got monoclonal antibodies on 01/16 in the ED, was on room air at that time dexamethasone 6mg IV daily, Lasix 20mg IV qAM with potassium, goal of negative fluid balance encouraged prone position incentive spirometer and flutter valve, mobilizing sputum no role for Remdesivir or baricitinib due to time course and lack of disease severity CRP was 7.9 however patient clinically has been stable with regard to his pulmonary status (2) Acute respiratory failure with hypoxia: Plan: 4 L nasal cannula,, unable to wean , very sluggish movement dexamethasone and lasix, prone positioning continue tapering oxygen (3) Headache: Plan: Ct venogram of head negative for thrombosis or stroke and additional sinus look clear too, medicate for pain (4) Asthma: Plan: stable (5) BPH (benign prostatic hyperplasia): Plan: Continue tamsulosin. No history of prostate cancer, no family history of prostate cancer Admission and Anticipated Discharge Date Admission Date: January 19, 2021 Review of Systems Review of Systems: Mild distress and fatigue bifrontal headache, less severe today sinus congestion but not sinusitis on CT head no speech or swallowing issues getting his taste back no chest pain, pressure or palpitations Persistent shortness of breath, maybe slightly better, occasionally productive cough no wheezes no abdominal pain, nausea or vomiting, diarrhea or constipation no dysuria, hematuria or frequency no focal joint pain or swelling no back pain, CVA tenderness or radicular pain no bruising, bleeding or rashes no focal signs of weakness or numbness or altered sensation no complaints of anxiety or depression.. Physical Exam Physical Exam: The patient appeared well nourished and normally developed. Vital signs as documented. Head exam is normocephalic atraumatic , perrl eomi, some nasal congestion Neck is without JVD, thyromegaly, or carotid bruits. Lungs continues with bilateral rales in all lung mujica Cardiac exam, Rhythm is regular.. No murmurs, rubs or gallops. Abdominal exam reveals normal bowel sounds, soft non tender, no masses Extremities are nonedematous and both pedal pulses are present Neurologic exam is alert and oriented, no focal loss of strength or sensation, cranial nerves intact Skin is without bruises or rashes Psychologically is without concerns for anxiety or depression Results & Data Results & Data ([facility]) Vital Signs (Past 12 Hours) Vital Signs Temp Pulse Pulse Resp BP BP Pulse Ox 01/24/21 15:26 97.9 F 64 19 115/65 95 01/24/21 11:06 97.7 F 58 L 20 117/67 93 01/24/21 10:02 101/64 01/24/21 10:00 01/24/21 08:28 97.5 F L 85 21 89/45 L 93 01/24/21 08:25 56 L 01/24/21 06:49 95 01/24/21 06:16 91 Pulse Ox 01/24/21 15:26 01/24/21 11:06 01/24/21 10:02 01/24/21 10:00 92 01/24/21 08:28 01/24/21 08:25 01/24/21 06:49 01/24/21 06:16 PG Care Time/CCT Total # of Minutes Spent Total Time Spent with Patient: Total time spent is greater than 50% in coordination of care (as documented) at patient's floor/unit and/or counseling patient: Coding Level of Care Code 81914 Subseq Hosp Care Lvl 2 Diagnoses Headache R51.9 Pneumonia due to 2019 novel coronavirus U07.1; J12.82 Acute respiratory failure with hypoxia J96.01 Asthma J45.909 BPH (benign prostatic hyperplasia) N40.0
[2021-01-25 07:42] LABS: Creatinine Clr Calc Pharmacy 105.8 ml/min; Est GFR (African American) 113.5 ml/min
[2021-01-25] MEDS: dexAMETHasone 6 MG in SYRINGE 0 ML IV SCH (08:53)
[2021-01-25] MEDS: TAMSULOSIN HCL 0.4 MG CAP PO SCH (08:54)
[2021-01-25] MEDS: FUROSEMIDE INJ 20 MG/2 ML VIAL IV SCH (08:54)
[2021-01-25] MEDS: POTASSIUM CHLORIDE CRTAB 20 MEQ TABCR PO SCH (08:54)
[2021-01-25] MEDS: ENOXAPARIN INJ 40 MG/0.4 ML SYR SQ SCH ×2 (08:54→19:43)
[2021-01-25] MEDS: FLUTICASONE FUROATE 200MCG 14 PUFFS/INHALER INH SCH (08:55)
[2021-01-25] MEDS: HYDROmorphone INJ 0.5 MG/0.5 ML SYR IV PRN (14:55)
--- NOTE | 2021-01-25 18:49 | Hospitalist Progress Note ---
Date of Service January 25, 2021 Assessment & Plan (1) Pneumonia due to 2019 novel coronavirus: Plan: Celestino is a 70-year-old male with a past medical history of asthma who presents on day 1011 of Covid with worsening hypoxia. got monoclonal antibodies on 01/16 in the ED, was on room air at that time dexamethasone 6mg IV daily, Lasix 20mg IV qAM with potassium, goal of negative fluid balance encouraged prone position incentive spirometer and flutter valve, mobilizing sputum no role for Remdesivir or baricitinib due to time course and lack of disease severity CRP was 7.9 however patient clinically has been stable with regard to his pulmonary status (2) Acute respiratory failure with hypoxia: Plan: 3-4 L nasal cannula,, unable to wean , very sluggish movement dexamethasone and lasix, prone positioning continue tapering oxygen (3) Headache: Plan: Ct venogram of head negative for thrombosis or stroke and additional sinus look clear too, medicate for pain (4) Asthma: Plan: stable (5) BPH (benign prostatic hyperplasia): Plan: Continue tamsulosin. No history of prostate cancer, no family history of prostate cancer Admission and Anticipated Discharge Date Admission Date: January 19, 2021 Subjective pt has recurrence of his significant headache, bilateral, still no visual changes, c/o some sinus fullness, still on 4L nasal cannulae has an intermittent cough, Lasix 20mg IV continues qAM headache has improved confirmed he has been sick for about 10-11 days prior to admission , monoclonal antibodies on 01/16 Review of Systems Review of Systems: Mild distress and fatigue bifrontal headache, less severe today sinus congestion but not sinusitis on CT head no speech or swallowing issues getting his taste back no chest pain, pressure or palpitations Persistent shortness of breath, maybe slightly better, occasionally productive cough no wheezes no abdominal pain, nausea or vomiting, diarrhea or constipation no dysuria, hematuria or frequency no focal joint pain or swelling no back pain, CVA tenderness or radicular pain no bruising, bleeding or rashes no focal signs of weakness or numbness or altered sensation no complaints of anxiety or depression.. Physical Exam Physical Exam: The patient appeared well nourished and normally developed. Vital signs as documented. Head exam is normocephalic atraumatic , perrl eomi, some nasal congestion Neck is without JVD, thyromegaly, or carotid bruits. Lungs continues with bilateral rales in all lung [place] Cardiac exam, Rhythm is regular.. No murmurs, rubs or gallops. Abdominal exam reveals normal bowel sounds, soft non tender, no masses Extremities are nonedematous and both pedal pulses are present Neurologic exam is alert and oriented, no focal loss of strength or sensation, cranial nerves intact Skin is without bruises or rashes Psychologically is without concerns for anxiety or depression Results & Data Results & Data ([facility]) Vital Signs (Past 12 Hours) Vital Signs Temp Pulse Resp BP Pulse Ox Pulse Ox Pulse Ox 01/25/21 15:20 98.2 F 56 L 18 110/66 95 01/25/21 11:41 97.5 F L 66 19 115/69 94 01/25/21 10:00 92 95 01/25/21 07:10 97.9 F 63 18 143/80 H 95 PG Care Time/CCT Total # of Minutes Spent Total Time Spent with Patient: Total time spent is greater than 50% in coordination of care (as documented) at patient's floor/unit and/or counseling patient: Coding Level of Care Code 33148 Subseq Hosp Care Lvl 2 Diagnoses Pneumonia due to 2019 novel coronavirus U07.1; J12.82 Acute respiratory failure with hypoxia J96.01 Headache R51.9 Asthma J45.909 BPH (benign prostatic hyperplasia) N40.0
[2021-01-26] MEDS: POTASSIUM CHLORIDE CRTAB 20 MEQ TABCR PO SCH (08:09)
[2021-01-26] MEDS: dexAMETHasone 6 MG in SYRINGE 0 ML IV SCH (08:09)
[2021-01-26] MEDS: TAMSULOSIN HCL 0.4 MG CAP PO SCH (08:09)
[2021-01-26] MEDS: FUROSEMIDE INJ 20 MG/2 ML VIAL IV SCH (08:09)
[2021-01-26] MEDS: FLUTICASONE FUROATE 200MCG 14 PUFFS/INHALER INH SCH (08:10)
[2021-01-26] MEDS: ENOXAPARIN INJ 40 MG/0.4 ML SYR SQ SCH (08:10)
--- NOTE | 2021-01-26 15:44 | Discharge Summary ---
Date of Service January 26, 2021 Admission HPI Per Admitting Provider Celestino reports symptoms and fatigue started ~10 days ago. Tested positive for COVID (resulted Thursday). [place] 'iffy' some achiness and congestion of the weekend. He has a home pulseox which was dropping, an dhe was concerned so came in the ER 4 days ago. He presented with his whose lungs looked OK, but Celestino reported his XR showed more PNA and was given a monoclonal infusion here by Dr. Elelr. Recieved that evening and started decadron 6mg daily. This morning he noticed his oxygen was down to 81% and he was very short of short. No chest pain or pressure Still peeing normally No nausea, vomiting, diarrhea, or constipation Hungry Had J&J vaccination Medical History: Reviewed. 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 BPH on tamsulosin. No hx prostate cancer. Medications: Reviewed Surgical History: Reviewed FHX: Noncontributory Allergies: Reviewed. NKDA Social History: No tobacco product use. Rare alcohol. No recreational drug use. Code Status:Full Code. Principal Diagnosis Acute respiratory failure with hypoxia COVID-19 positive test (U07.1, COVID-19) with Acute Pneumonia (J12.89, Other viral pneumonia) (If respiratory failure or sepsis present, add as separate assessment) Headache resolved Discharge Exam The patient appeared well Vital signs as documented. Lungs are clear to auscultation and appear unlabored Cardiac exam, Rhythm is regular.. No murmurs, rubs or gallops. Abdominal exam reveals normal bowel sounds, soft non tender, no masses Extremities are nonedematous and both pedal pulses are normal. Neurologic exam is alert and oriented, no focal loss of strength or sensation Skin is without bruises or rashes Psychologically is without concerns for anxiety or depression. Discharge Data Allergies Allergy/AdvReac Type Severity Reaction Status Date / Time No Known Allergies Allergy Mild Verified 01/16/21 20:14 Consultations 01/19/21 14:36 ED Decision to Admit Stat Ordered Studies 01/22/21 15:05 CT head venogram wo/w con Routine Hospital Course (1) Pneumonia due to 2019 novel coronavirus: Celestino is a 70-year-old male with a past medical history of asthma who presents on day 101 of Covid with worsening hypoxia. got monoclonal antibodies on 01/16 in the ED, was on room air at that time Patient proved dramatically overnight from the January 25-. He is now on room air two-step oxygen testing did not require any exertional oxygen. Patient will be home to complete additional prednisone at home for 3 more days for total of 10 days of steroid treatment. no role for Remdesivir or baricitinib due to time course and lack of disease severity CRP was 7.9 however patient clinically has been stable with regard to his pulmonary status (2) Acute respiratory failure with hypoxia: Resolved does not require oxygen at time of discharge (3) Headache: Ct venogram of head negative for thrombosis or stroke and additional sinus look clear too, resolved (4) Asthma: stable (5) BPH (benign prostatic hyperplasia): Continue tamsulosin. No history of prostate cancer, no family history of prostate cancer Total Time Total Time Spent Total Time Spent (In Minutes): It required greater than 30 minutes to prepare this patient for discharge Discharge Plan Discharge Items Patient Disposition: Home - Self-Care Reason For Visit: COVID +,SOB Discharge Diagnosis: covid pneumonia Condition on Discharge: Fair Activity: Per Instructions section Activity Comment: slowly increase activity Non-emergency contact: Primary Care Provider Call non-emergency contact if: your symptoms worsen and you have a fever Follow-up/Referrals: Kinza Miramontes, [Primary Care Provider] - Diet: Regular Addtl Attending Provider Instructions: Please expect to be tired over the next 2 to 4 weeks at home while you are recovering from Covid pneumonia Please do not be around other people who have not had Covid infection If you have been around people in your own home will manage Covid infection wear mask, however make all attempts to be away from them including not sleeping in the same room. Consider yourself infectious until 28 January Take your prednisone at home 20 mg once a day for an additional 3 days to be the seventh eighth and 29 January Home Isolation COVID-19 Instructions The following information about Home Isolation is from the CDC Website: https://www.cdc.gov/coronavirus/2019-ncov/hcp/pckythcz-afmtthp-njyhxq.html Stay home except to get medical care People who are mildly ill with COVID-19 are able to isolate at home during their illness. You should restrict activities outside your home, except for getting medical care. Do not go to work, school, or public areas. Avoid using public transportation, ride-sharing, or taxis. Separate yourself from other people and animals in your home People: As much as possible, you should stay in a specific room and away from other people in your home. Also, you should use a separate bathroom, if available. Animals: You should restrict contact with pets and other animals while you are sick with COVID-19, just like you would around other people. Although there have not been reports of pets or other animals becoming sick with COVID-19, it is still recommended that people sick with COVID-19 limit contact with animals until more information is known about the virus. When possible, have another member of your household care for your animals while you are sick. If you are sick with COVID-19, avoid contact with your pet, including petting, snuggling, being kissed or licked, and sharing food. If you must care for your pet or be around animals while you are sick, wash your hands before and after you interact with pets and wear a face mask. Call ahead before visiting your doctor If you have a medical appointment, call the healthcare provider and tell them that you have or may have COVID-19. This will help the healthcare providers office take steps to keep other people from getting infected or exposed. Wear a face mask You should wear a face mask when you are around other people (e.g., sharing a room or vehicle) or pets and before you enter a healthcare providers office. If you are not able to wear a face mask (for example, because it causes trouble breathing), then people who live with you should not stay in the same room with you, or they should wear a face mask if they enter your room. Cover your coughs and sneezes Cover your mouth and nose with a tissue when you cough or sneeze. Throw used tissues in a lined trash can. Immediately wash your hands with soap and water for at least 20 seconds or, if soap and water are not available, clean your hands with an alcohol-based hand welfare case worker that contains at least 60% alcohol. Clean your hands often Wash your hands often with soap and water for at least 20 seconds, especially after blowing your nose, coughing, or sneezing; going to the bathroom; and before eating or preparing food. If soap and water are not readily available, use an alcohol-based hand welfare case worker with at least 60% alcohol, covering all surfaces of your hands and rubbing them together until they feel dry. Soap and water are the best option if hands are visibly dirty. Avoid touching your eyes, nose, and mouth with unwashed hands. Avoid sharing personal household items You should not share dishes, drinking glasses, cups, eating utensils, towels, or bedding with other people or pets in your home. After using these items, they should be washed thoroughly with soap and water. Clean all high-touch surfaces everyday High touch surfaces include counters, tabletops, doorknobs, bathroom fixtures, toilets, phones, keyboards, tablets, and bedside tables. Also, clean any surfaces that may have blood, stool, or body fluids on them. Use a household cleaning spray or wipe, according to the label instructions. Labels contain instructions for safe and effective use of the cleaning product including precautions you should take when applying the product, such as wearing gloves and making sure you have good ventilation during use of the product. Monitor your symptoms Seek prompt medical attention if your illness is worsening (e.g., difficulty breathing).Beforeseeking care, call your healthcare provider and tell them that you have, or are being evaluated for, COVID-19. Put on a face mask before you enter the facility. These steps will help the healthcare providers office to keep other people in the office or waiting room from getting infected or exposed. Ask your healthcare provider to call the local or state health department. Persons who are placed under active monitoring or facilitated self- monitoring should follow instructions provided by their local health department or occupational health professionals, as appropriate. When working with your local health department check their available hours. If you have a medical emergency and need to call 911, notify the dispatch personnel that you have, or are being evaluated for COVID-19. If possible, put on a face mask before emergency medical services arrive. Discontinuing home isolation Patients with confirmed COVID-19 should remain under home isolation precautions until the risk of secondary transmission to others is thought to be low. The decision to discontinue home isolation precautions should be made on a [id number] basis, in consultation with healthcare providers and state and local health departments. Pending Studies at Discharge: No Stand-Alone Forms: My [facility], Smoking Cessation Medications and DC Order Prescriptions: Continued Pulmicort Flexhaler 180 mcg/actuation aerosol powdr breath activated 2 inh INHALATION BID RF: 0 tamsulosin 0.4 mg capsule 0.4 mg PO DAILY RF: 0 prednisone 20 mg tablet 20 mg PO BID 5 Days Qty: 10 RF: 0 Discharge Orders: Discharge Order (Routine); Ordered 01/26/21 Ordered By: Yohan Malhotra Admission Data Admit Date/Time: 01/19/21 16:58 Attending Provider: Yohan Malhotra Admit Provider: Amaury Wen Primary Care Provider: Kinza Miramontes Other Providers: Amaury Wen Coding Level of Care Code D/C DAY MANAGEMENT >30 MINS Diagnoses Pneumonia due to 2019 novel coronavirus U07.1; J12.82 Acute respiratory failure with hypoxia J96.01 Headache R51.9 Asthma J45.909 BPH (benign prostatic hyperplasia) N40.0
== END 2021-01-26 15:38 | disposition home or self-care (01) | DRG 177 ==
LOC: ED 12:16 → 2S 16:38 → SUATTDRO 16:58